=== PATIENT | male | born 1985 | race African-American/Black ===

== ENCOUNTER 2017-09-11 16:27 | Emergency (ER) | payer MEDICAID ==
[~2017-09-11] VITALS: Ht 185.4 cm; Wt 86.4 kg
[2017-09-11] MEDS: METHOCARBAMOL 500 MG TABLET PO ONE (17:26)
[2017-09-11] MEDS: KETOROLAC TROMETHAMINE 60 MG/2 ML VIAL IM ONE (17:26)
[2017-09-11 18:15] VITALS: BP 138/70
== END 2017-09-11 18:23 | disposition home or self-care (01) ==
LOC: EMS 16:32
DX: S93.401A Sprain of unspecified ligament of right ankle, initial encounter (principal); M54.5 Low back pain; M54.2 Cervicalgia; F17.200 Nicotine dependence, unspecified, uncomplicated; V09.9XXA Pedestrian injured in unspecified transport accident, initial encounter; Y93.89 Activity, other specified; Y92.89 Other specified places as the place of occurrence of the external cause; Y99.8 Other external cause status
CPT/HCPCS: 96372; 99283; J1885

== ENCOUNTER 2017-09-27 11:20 | Emergency (ER) | payer MEDICAID ==
[~2017-09-27] VITALS: Ht 177.8 cm; Wt 109.1 kg
[2017-09-27] MEDS ORDERED: ACETAMINOPHEN 500 MG TABLET PO ONE (12:30)
[2017-09-27 13:27] VITALS: BP 118/62
== END 2017-09-27 13:31 | disposition home or self-care (01) ==
LOC: EMS 11:22
DX: R51 Headache (principal); H53.8 Other visual disturbances; F17.210 Nicotine dependence, cigarettes, uncomplicated
CPT/HCPCS: 70450; 99284; 99406